=== PATIENT | female | born 1975 | race Caucasian/White ===

== ENCOUNTER 2019-06-30 23:40 | Emergency (ER) | payer OTHER ==
[~2019-06-30] VITALS: Ht 152.4 cm; Wt 81.6 kg
[2019-06-30] MEDS ORDERED: SYNTHROID175 MCG (23:55)
== END 2019-07-01 | disposition left against medical advice (07) ==
LOC: ER 23:40
DX: R11.0 Nausea (principal); F10.129 Alcohol abuse with intoxication, unspecified